=== PATIENT | female | born 1960 | race Caucasian/White ===

== ENCOUNTER 2024-01-29 09:19 | Emergency (ER) | payer OTHER ==
[2024-01-29] MEDS ORDERED: RABIES VACCINE (PCEC)/PF 2.5 UNIT/VIAL IM ONE (09:46)
[2024-01-29 10:06] VITALS: BP 117/72; PULSE 63; RESP 18; TEMP 98.2; BMI 21.2
[2024-01-29] MEDS: RABIES VACCINE (PCEC)/PF 2.5 UNIT/VIAL IM ONE (11:40)
== END 2024-01-29 12:00 | disposition home or self-care (01) ==
LOC: FER 09:19
PROC: 3E0234Z Introduction of Serum, Toxoid and Vaccine into Muscle, Percutaneous Approach (ICD-10-PCS; principal; 2024-01-29)
DX: Z29.14 Encounter for prophylactic rabies immune globulin (principal)
CPT/HCPCS: 90675; 99281-25

== ENCOUNTER 2024-01-31 21:02 | Emergency (ER) | payer OTHER ==
[2024-01-31 21:08] VITALS: BP 106/72; PULSE 68; RESP 16; TEMP 97.9; BMI 21.2
[2024-01-31] MEDS ORDERED: RABIES VACCINE (PCEC)/PF 2.5 UNIT/VIAL IM ONE (21:19)
[2024-01-31] MEDS: RABIES VACCINE (PCEC)/PF 2.5 UNIT/VIAL IM ONE (21:24)
== END 2024-01-31 21:31 | disposition home or self-care (01) ==
LOC: FER 21:02
PROC: 3E0234Z Introduction of Serum, Toxoid and Vaccine into Muscle, Percutaneous Approach (ICD-10-PCS; principal; 2024-01-31)
DX: Z29.14 Encounter for prophylactic rabies immune globulin (principal)
CPT/HCPCS: 90675; 99281-25

== ENCOUNTER 2024-02-08 21:24 | Emergency (ER) | payer OTHER ==
[2024-02-08 21:31] VITALS: BP 98/60; PULSE 56; RESP 14; TEMP 97.5; BMI 21.2
[2024-02-08] MEDS ORDERED: RABIES VACCINE (PCEC)/PF 2.5 UNIT/VIAL IM ONE (21:56)
[2024-02-08] MEDS: RABIES VACCINE (PCEC)/PF 2.5 UNIT/VIAL IM ONE (22:01)
== END 2024-02-08 22:05 | disposition home or self-care (01) ==
LOC: FER 21:24
PROC: 3E0234Z Introduction of Serum, Toxoid and Vaccine into Muscle, Percutaneous Approach (ICD-10-PCS; principal; 2024-02-08)
DX: Z29.14 Encounter for prophylactic rabies immune globulin (principal)
CPT/HCPCS: 90675; 99281-25

== ENCOUNTER 2024-04-08 15:20 | Emergency (ER) | payer OTHER ==
[2024-04-08 15:36] VITALS: BP 129/77; PULSE 68; RESP 16; TEMP 97.7; BMI 20.3
[2024-04-08] MEDS: IBUPROFEN 400 MG TABLET (FP) PO ONE (16:30)
[2024-04-08] MEDS: ACETAMINOPHEN 500 MG TABLET (FP) PO ONE (16:31)
[2024-04-08] MEDS: DIPHTH,PERTUSS(ACELL),TET 0.5 ML DISP.SYRIN IM ONE (16:31)
== END 2024-04-08 17:45 | disposition home or self-care (01) ==
LOC: FER 15:20
PROC: 0HQFXZZ Repair Right Hand Skin, External Approach (ICD-10-PCS; principal; 2024-04-08)
PROC: 3E0234Z Introduction of Serum, Toxoid and Vaccine into Muscle, Percutaneous Approach (ICD-10-PCS; 2024-04-08)
DX: S61.411A Laceration without foreign body of right hand, initial encounter (principal); S80.211A Abrasion, right knee, initial encounter; M25.531 Pain in right wrist; W19.XXXA Unspecified fall, initial encounter; Z23 Encounter for immunization
CPT/HCPCS: 73090-TC-RT-FY; 73110-TC-LT-FY; 73110-TC-RT-FY; 73130-TC-LT-FY; 73130-TC-RT-FY; 90715; 99284-25

== ENCOUNTER 2024-04-19 19:38 | Emergency (ER) | payer OTHER ==
[2024-04-19 19:52] VITALS: BP 128/78; PULSE 57; RESP 16; TEMP 97.7; BMI 20.3
== END 2024-04-19 20:04 | disposition home or self-care (01) ==
LOC: FER 19:38
DX: Z48.02 Encounter for removal of sutures (principal)
CPT/HCPCS: 99281-25